=== PATIENT | male | born 1975 | race Caucasian/White ===

== ENCOUNTER → 2018-08-10 | Outpatient (CLI) | payer OTHER ==
[2018-08-10 17:27] LABS: Urine Alcohol Negative (Negative); Urine Barbiturate Negative (Negative); Urine Cocaine Negative (Negative); Urine Methadone Negative (Negative); Urine Opiates Positive (Negative); Urine Phencyclidine Negative (Negative)
== END ==
LOC: LABWHC1 11:23 → EDSTATUS 11:32
PROVIDERS: ATTEND Internal Medicine
DX: Z51.81 Encounter for therapeutic drug level monitoring (principal); Z79.891 Long term (current) use of opiate analgesic
CPT/HCPCS: 80306

== ENCOUNTER 2019-04-16 15:19 | Emergency (ER) | payer OTHER ==
[2019-04-16 15:24] VITALS: RESP 18
[2019-04-16] MEDS ORDERED: AMOXIC-POT CLAV 875MG STARTER 2 EACH TABLET PO STA (16:11)
--- NOTE | 2019-04-16 16:11 | ED ---
General Adult HPI - General Chief complaint: Animal Bite Stated complaint: [facility] dog bite Time Seen by Provider: 04/16/19 15:36 Source: patient, RN notes reviewed, old records reviewed Mode of arrival: ambulatory Limitations: no limitations - History of Present Illness Initial comments: 43-year-old male patient fully vaccinated, last tetanus 3 years ago presents ED for evaluation of possible dog bite to his scrotum. 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 Patient reports that he is wearing very thick Cement as well as underwear and did not penetrate through the pants. Patient reports that he believes he does have a small abrasion in his left scrotal region and wanted to be evaluated. Patient reports that he vigorously cleaned this with soap and water as well as hydrogen peroxide after the bite. Patient denies any other complaints. Systemic: Pt denies fatigue, fever/chills, rash. Pt denies weakness, night sweats, weight loss. Neuro: Pt denies headache, visual disturbances, syncope or pre-syncope. HEENT: Pt denies ocular discharge or irritation, otalgia, rhinorrhea, pharyngitis or notable lymphadenopathy. Cardiopulmonary: Pt denies chest pain, SOB, heart palpitations, dyspnea on exertion. Abdominal/GI: Pt denies abdominal pain, n/v/d. : Pt denies dysuria, burning w/ urination, frequency/urgency. Denies new onset urinary or bowel incontinence. MSK: Pt denies myalgia, loss of strength or function in extremities. Neuro: Pt denies new onset weakness, paresthesias. - Related Data Home Medications Medication Instructions Recorded Confirmed Zolpidem [Ambien] 10 mg PO HS PRN 04/21/16 04/21/16 fentaNYL 50MCG/HR PATCH [Duragesic 1 patch TRANSDERM Q72H 04/21/16 04/21/16 50Mcg/Hr Patch] Previous Rx's Medication Instructions Recorded Orphenadrine [Norflex] 100 mg PO Q12H #10 tablet.er 04/21/16 Amoxicillin/Potassium Clav 1 each PO Q12HR #20 tab 04/16/19 [Augmentin 875-125 Tablet] Allergies Allergy/AdvReac Type Severity Reaction Status Date / Time quetiapine fumarate Allergy Unknown Verified 04/16/19 15:24 [From Seroquel] Review of Systems ROS Statement: Those systems with pertinent positive or pertinent negative responses have been documented in the HPI. ROS Other: All systems not noted in ROS Statement are negative. Past Medical History Past Medical History: Hypertension Additional Past Medical History / Comment(s): sciatic nerve problems, insomnia History of Any Multi-Drug Resistant Organisms: None Reported Past Surgical History: No Surgical Hx Reported Past Psychological History: No Psychological Hx Reported Smoking Status: Never smoker Past Alcohol Use History: None Reported Past Drug Use History: None Reported General Exam - General Exam Comments Initial Comments: Constitutional: NAD, AOX3, Pt has pleasant affect. HEENT: NC/AT, trachea midline, neck supple, no lymphadenopathy. Posterior pharynx non erythematous, without exudates. External ears appear normal, without discharge. Mucous membranes moist. Eyes PERRLA, EOM intact. There is no scleral icterus. No pallor noted. Cardiopulmonary: RRR, no murmurs, rubs or gallops, no JVD noted. Lungs CTAB in anterior and posterior noel. No peripheral edema. Abdominal exam: Abdomen soft and non-distended. Abdomen non-tender to palpation in all 4 quadrants. Bowel sounds active in LLQ. No hepatosplenomegaly. No ecchymosis Neuro: CN II-XII grossly intact. No nuchal rigidity. No raccon eyes, no kay sign, no hemotympanum. No cervical spinal tenderness. MSK: No posterior calf tenderness bilaterally, homans sign negative bilaterally. Posterior tibialis and radial pulse +2 bilaterally. Sensation intact in upper and lower extremities. Full active ROM in upper and lower extremities, 5/5 stregnth. : Small abrasion less than 1 cm noted in left scrotal region. No penetrating trauma. No bleeding. No other injuries noted. No testicular tenderness, no blue dot sign, no masses felt. Limitations: no limitations Course Vital Signs 04/16/19 15:21 Temperature 99.0 F Pulse Rate 85 Respiratory 18 Rate Blood Pressure 153/101 O2 Sat by Pulse 98 Oximetry Medical Decision Making - Medical Decision Making 43-year-old male patient fully vaccinated, last tetanus 3 years ago presents ED for evaluation of possible dog bite to his scrotum. 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 Patient reports that he is wearing very thick [place] as well as underwear and did not penetrate through the pants. Patient reports that he believes he does have a small abrasion in his left scrotal region and wanted to be evaluated. Patient reports that he vigorously cleaned this with soap and water as well as hydrogen peroxide after the bite. Patient denies any other complaints. Pt VSS, afebrile. Physical exam displayed: Small abrasion less than 1 cm noted in left scrotal region. No penetrating trauma. No bleeding. No other injuries noted. No testicular tenderness, no blue dot sign, no masses felt. Cleaned in ED. Pt will be started on augmentin, will be discharged with close return precautions. Case discussed with Dr. Chavez. Disposition Clinical Impression: Dog bite, Abrasion Disposition: HOME SELF-CARE Instructions (If sedation given, give patient instructions): Animal Bite (ED) Additional Instructions: Patient to adhere to previously discussed treatment plan and will take medication(s) as directed. Patient to follow up with PCP in 1-2 days. Patient to return to ED if symptoms do not improve. Take medications as directed. Follow up with primary care provider tomorrow. Return to ER if condition worsens. Prescriptions: Amoxicillin/Potassium Clav [Augmentin 875-125 Tablet] 1 each PO Q12HR #20 tab Is patient prescribed a controlled substance at d/c from ED?: No Referrals: Angelo Santos MD [Primary Care Provider] - 1-2 days
[2019-04-16 16:43] VITALS: BP 146/85; PULSE 71; TEMP 98.8
== END 2019-04-16 16:37 | disposition home or self-care (01) ==
LOC: EC 15:19
DX: S30.813A Abrasion of scrotum and testes, initial encounter (principal); S31.35XA Open bite of scrotum and testes, initial encounter; Z88.8 Allergy status to other drugs, medicaments and biological substances; W54.0XXA Bitten by dog, initial encounter; Y93.89 Activity, other specified; Y92.69 Other specified industrial and construction area as the place of occurrence of the external cause; Y99.0 Civilian activity done for income or pay
CPT/HCPCS: 99283

== ENCOUNTER 2019-04-18 11:29 | Emergency (ER) | payer OTHER ==
[2019-04-18 11:36] VITALS: TEMP 98.4
--- NOTE | 2019-04-18 11:58 | ED ---
General Adult HPI - General Chief complaint: Animal Bite Stated complaint: [facility] - recheck dog bite Time Seen by Provider: 04/18/19 11:39 Source: patient, RN notes reviewed, old records reviewed Mode of arrival: ambulatory Limitations: no limitations - History of Present Illness Initial comments: 43-year-old male patient presents in ED for chief complaint of wound recheck. Patient reports that on 04/16 he was bitten by a dog through his pants in his left scrotal region. The teeth did not penetrate through the pants, patient had a small abrasion in his left scrotal region. Patient is discharged with antibiotics. Patient reports that since discharge she has had pain in his left testicle which radiates upward. Patient has been taking in excess prescribed. Patient denies any fevers chills, symptoms of infection. Patient denies any other complaints this time. Systemic: Pt denies fatigue, fever/chills, rash. Pt denies weakness, night sweats, weight loss. Neuro: Pt denies headache, visual disturbances, syncope or pre-syncope. HEENT: Pt denies ocular discharge or irritation, otalgia, rhinorrhea, pharyngitis or notable lymphadenopathy. Cardiopulmonary: Pt denies chest pain, SOB, heart palpitations, dyspnea on exertion. Abdominal/GI: Pt denies abdominal pain, n/v/d. : Pt denies dysuria, burning w/ urination, frequency/urgency. Denies new onset urinary or bowel incontinence. MSK: Pt denies myalgia, loss of strength or function in extremities. Neuro: Pt denies new onset weakness, paresthesias. - Related Data Home Medications Medication Instructions Recorded Confirmed Zolpidem [Ambien] 10 mg PO HS PRN 04/21/16 04/21/16 fentaNYL 50MCG/HR PATCH [Duragesic 1 patch TRANSDERM Q72H 04/21/16 04/21/16 50Mcg/Hr Patch] Previous Rx's Medication Instructions Recorded Orphenadrine [Norflex] 100 mg PO Q12H #10 tablet.er 04/21/16 Amoxicillin/Potassium Clav 1 each PO Q12HR #20 tab 04/16/19 [Augmentin 875-125 Tablet] Cephalexin [Keflex] 500 mg PO Q6HR 7 Days #28 cap 04/18/19 Allergies Allergy/AdvReac Type Severity Reaction Status Date / Time quetiapine fumarate Allergy Unknown Verified 04/18/19 11:33 [From Seroquel] Review of Systems ROS Statement: Those systems with pertinent positive or pertinent negative responses have been documented in the HPI. ROS Other: All systems not noted in ROS Statement are negative. Past Medical History Past Medical History: Hypertension Additional Past Medical History / Comment(s): sciatic nerve problems, insomnia History of Any Multi-Drug Resistant Organisms: None Reported Past Surgical History: No Surgical Hx Reported Past Psychological History: No Psychological Hx Reported Smoking Status: Never smoker Past Alcohol Use History: None Reported Past Drug Use History: None Reported General Exam - General Exam Comments Initial Comments: Constitutional: NAD, AOX3, Pt has pleasant affect. HEENT: NC/AT, trachea midline, neck supple, no lymphadenopathy. Posterior pharynx non erythematous, without exudates. External ears appear normal, without discharge. Mucous membranes moist. Eyes PERRLA, EOM intact. There is no scleral icterus. No pallor noted. Cardiopulmonary: RRR, no murmurs, rubs or gallops, no JVD noted. Lungs CTAB in anterior and posterior noel. No peripheral edema. Abdominal exam: Abdomen soft and non-distended. Abdomen non-tender to palpation in all 4 quadrants. Bowel sounds active in LLQ. No hepatosplenomegaly. No ecchymosis Neuro: CN II-XII grossly intact. No nuchal rigidity. No raccon eyes, no kay sign, no hemotympanum. No cervical spinal tenderness. MSK: No posterior calf tenderness bilaterally, homans sign negative bilaterally. Posterior tibialis and radial pulse +2 bilaterally. Sensation intact in upper and lower extremities. Full active ROM in upper and lower extremities, 5/5 stregnth. : Abrasion noted and left scrotal region, no cellulitis, no streaking. Left testicle mild tenderness to palpation. No blue dot sign, creamesteric reflex intact Limitations: no limitations Course Vital Signs 04/18/19 04/18/19 11:31 14:14 Temperature 98.4 F Pulse Rate 69 64 Respiratory 16 18 Rate Blood Pressure 162/101 134/94 O2 Sat by Pulse 99 97 Oximetry Medical Decision Making - Medical Decision Making 43-year-old male patient presents in ED for chief complaint of wound recheck. Patient reports that on 04/16 he was bitten by a dog through his pants in his left scrotal region. The teeth did not penetrate through the pants, patient had a small abrasion in his left scrotal region. Patient is discharged with antibiotics. Patient reports that since discharge she has had pain in his left testicle which radiates upward. Patient has been taking in excess prescribed. Patient denies any fevers chills, symptoms of infection. Patient denies any other complaints this time. Patient will signs stable, afebrile. Physical exam displayed: Abrasion noted and left scrotal region, no cellulitis, no streaking. Left testicle mild tenderness to palpation. No blue dot sign, creamesteric reflex intact. Ultrasound displayed no sonographic evidence of torsion, small extratesticular 2.4 cm fluid collection which may represent small seroma or a small left hydrocele. UA displayed mild dry tract infection. Patient again stated that he does not believe that he has any STDs. Denies any dysuria or d ischarge. Patient reportedly been sexually active with his one time the last 2 years. Approximate 4 months ago. Patient acute Keflex for her urinary tract infection will be discharged with close outpatient neurologic follow-up will continue to take Augmentin will return to ER if condition worsens in any way. Case discussed with Dr. Lou. - Lab Data Result diagrams: 04/18/19 13:00 04/18/19 13:00 Lab Results 04/18/19 04/18/19 04/18/19 Range/Units 13:00 13:00 13:00 WBC 6.8 (3.8-10.6) k/uL RBC 4.70 (4.30-5.90) m/uL Hgb 14.5 (13.0-17.5) gm/dL Hct 42.2 (39.0-53.0) % MCV 89.8 (80.0-100.0) fL MCH 30.9 (25.0-35.0) pg MCHC 34.4 (31.0-37.0) g/dL RDW 12.6 (11.5-15.5) % Plt Count 207 (150-450) k/uL Neutrophils % 64 % Lymphocytes % 23 % Monocytes % 6 % Eosinophils % 4 % Basophils % 2 % Neutrophils # 4.3 (1.3-7.7) k/uL Lymphocytes # 1.6 (1.0-4.8) k/uL Monocytes # 0.4 (0-1.0) k/uL Eosinophils # 0.2 (0-0.7) k/uL Basophils # 0.1 (0-0.2) k/uL Sodium 141 (137-145) mmol/L Potassium 5.0 (3.5-5.1) mmol/L Chloride 105 (98-107) mmol/L Carbon Dioxide 25 (22-30) mmol/L Anion Gap 11 mmol/L BUN 12 (9-20) mg/dL Creatinine 0.87 (0.66-1.25) mg/dL Est GFR (CKD-EPI)AfAm >90 (>60 ml/min/1.73 sqM) Est GFR (CKD-EPI)NonAf >90 (>60 ml/min/1.73 sqM) Glucose 129 H (74-99) mg/dL Plasma Lactic Acid Bala 1.2 (0.7-2.0) mmol/L Calcium 9.5 (8.4-10.2) mg/dL Total Bilirubin 0.4 (0.2-1.3) mg/dL AST 81 H (17-59) U/L ALT 136 H (21-72) U/L Alkaline Phosphatase 67 (38-126) U/L Total Protein 8.1 (6.3-8.2) g/dL Albumin 4.8 (3.5-5.0) g/dL Urine Color Urine Appearance (Clear) Urine pH (5.0-8.0) Ur Specific [place] (1.001-1.035) Urine Protein (Negative) Urine Glucose (UA) (Negative) Urine Ketones (Negative) Urine Blood (Negative) Urine Nitrite (Negative) Urine Bilirubin (Negative) Urine Urobilinogen (<2.0) mg/dL Ur Leukocyte Esterase (Negative) Urine RBC (0-5) /hpf Urine WBC (0-5) /hpf Urine Mucus (None) /hpf Urine Sperm (None) /hpf 04/18/19 Range/Units 13:52 WBC (3.8-10.6) k/uL RBC (4.30-5.90) m/uL Hgb (13.0-17.5) gm/dL Hct (39.0-53.0) % MCV (80.0-100.0) fL MCH (25.0-35.0) pg MCHC (31.0-37.0) g/dL RDW (11.5-15.5) % Plt Count (150-450) k/uL Neutrophils % % Lymphocytes % % Monocytes % % Eosinophils % % Basophils % % Neutrophils # (1.3-7.7) k/uL Lymphocytes # (1.0-4.8) k/uL Monocytes # (0-1.0) k/uL Eosinophils # (0-0.7) k/uL Basophils # (0-0.2) k/uL Sodium (137-145) mmol/L Potassium (3.5-5.1) mmol/L Chloride (98-107) mmol/L Carbon Dioxide (22-30) mmol/L Anion Gap mmol/L BUN (9-20) mg/dL Creatinine (0.66-1.25) mg/dL Est GFR (CKD-EPI)AfAm (>60 ml/min/1.73 sqM) Est GFR (CKD-EPI)NonAf (>60 ml/min/1.73 sqM) Glucose (74-99) mg/dL Plasma Lactic Acid Bala (0.7-2.0) mmol/L Calcium (8.4-10.2) mg/dL Total Bilirubin (0.2-1.3) mg/dL AST (17-59) U/L ALT (21-72) U/L Alkaline Phosphatase (38-126) U/L Total Protein (6.3-8.2) g/dL Albumin (3.5-5.0) g/dL Urine Color Yellow Urine Appearance Clear (Clear) Urine pH 5.5 (5.0-8.0) Ur Specific [place] 1.014 (1.001-1.035) Urine Protein Negative (Negative) Urine Glucose (UA) Negative (Negative) Urine Ketones Negative (Negative) Urine Blood Negative (Negative) Urine Nitrite Negative (Negative) Urine Bilirubin Negative (Negative) Urine Urobilinogen <2.0 (<2.0) mg/dL Ur Leukocyte Esterase Small H (Negative) Urine RBC 3 (0-5) /hpf Urine WBC 11 H (0-5) /hpf Urine Mucus Rare H (None) /hpf Urine Sperm Rare (None) /hpf Disposition Clinical Impression: Seroma, UTI (urinary tract infection) Disposition: HOME SELF-CARE Condition: Stable Instructions (If sedation given, give patient instructions): Urinary Tract Infection in Men (ED), Seroma (DC) Additional Instructions: Patient to adhere to previously discussed treatment plan and will take medication(s) as directed. Patient to follow up with PCP in 1-2 days. Patient to return to ED if symptoms do not improve. Follow-up urologist tomorrow, take medication as directed. Return to ER if condition worsens. Prescriptions: Cephalexin [Keflex] 500 mg PO Q6HR 7 Days #28 cap Is patient prescribed a controlled substance at d/c from ED?: No Referrals: Angelo Santos MD [Primary Care Provider] - 1-2 days Kraig Mclain MD [STAFF PHYSICIAN] - 1-2 days
--- NOTE | 2019-04-18 13:15 | US ---
EXAMINATION TYPE: US scrotum with doppler. Grayscale and color Doppler Duplex imaging performed of t sami scrotum. DATE OF EXAM: 04/18/2019 COMPARISON: NONE CLINICAL HISTORY: pain, s/p animal bite. Left testicular pain following dog bite 2 days ago EXAM MEASUREMENTS: TESTICLES: Right Testicle: 4.6 x 3.4 x 3.6 cm Left Testicle: 5.2 x 2.5 x 3.5 cm EPIDIDYMIS HEAD: Right Epididymis: 1.8 x 0.9 x 1.4 cm Left Epididymis: 0.9 x 1.1 x 1.7 cm Doppler performed to assess for testicular vascularity; good bilateral color flow and waveforms are s een. There is no evidence of testicular torsion. Presence of hydroceles: left 2.4cm fluid collection, possible hydrocele or seroma. Presence of varicoceles: no IMPRESSION: No sonographic evidence of testicular torsion at the time of the examination. There is a a small extratesticular 2.4 cm left fluid collection in the subcutaneous tissues that may represent a small seroma or loculated component of a small left hydrocele.
[2019-04-18 13:21] LABS: Basophils # (A) 0.1 k/uL (0-0.2); Basophils % (A) 2 %; Eosinophils # (A) 0.2 k/uL (0-0.7); Eosinophils % (A) 4 %; HCT 42.2 % (39.0-53.0); HGB 14.5 gm/dL (13.0-17.5); Lymphocytes # (A) 1.6 k/uL (1.0-4.8); Lymphocytes % (A) 23 %; MCH 30.9 pg (25.0-35.0); MCHC 34.4 g/dL (31.0-37.0); MCV 89.8 fL (80.0-100.0); Mean Platelet Volume 6.7; Monocytes # (A) 0.4 k/uL (0-1.0); Monocytes % (A) 6 %; Neutrophils # (A) 4.3 k/uL (1.3-7.7); Neutrophils % (A) 64 %; Platelet Count 207 k/uL (150-450); RDW 12.6 % (11.5-15.5); WBC 6.8 k/uL (3.8-10.6)
[2019-04-18 13:30] LABS: ALT 136 U/L (21-72); AST 81 U/L (17-59); African American GFR (CKD) >90 (>60 ml/min/1.73 sqM); Albumin 4.8 g/dL (3.5-5.0); Alkaline Phosphatase 67 U/L (38-126); Anion Gap 11 mmol/L; Blood Urea Nitrogen 12 mg/dL (9-20); Calcium 9.5 mg/dL (8.4-10.2); Carbon Dioxide 25 mmol/L (22-30); Chloride 105 mmol/L (98-107); Glucose 129 mg/dL (74-99); Sodium 141 mmol/L (137-145); Total Bilirubin 0.4 mg/dL (0.2-1.3); Total Protein 8.1 g/dL (6.3-8.2)
[2019-04-18 14:15] VITALS: RESP 18
[2019-04-18 14:46] LABS: Appearance,Urine Clear (Clear); Bilirubin,Urine Negative (Negative); Blood,Urine Negative (Negative); Color,Urine Yellow; Glucose,Urine (UA) Negative (Negative); Ketones,Urine Negative (Negative); Leukocyte Esterase,Urine Small (Negative); Mucus,Urine Rare /hpf; Nitrite,Urine Negative (Negative); PH, Urine 5.5 (5.0-8.0); Protein,Urine Negative (Negative); RBC,Urine 3 /hpf (0-5); Specific Gravity,Urine 1.014 (1.001-1.035); Sperm,Urine Rare /hpf; Urobilinogen,Urine <2.0 mg/dL (<2.0); WBC,Urine 11 /hpf (0-5)
[2019-04-18] MEDS ORDERED: CEPHALEXIN 500MG STARTER PACK 4 CAP BTL PO STA (14:59)
[2019-04-18] MEDS ORDERED: CEPHALEXIN 500 MG CAP PO STA (14:59)
[2019-04-18 16:22] VITALS: BP 138/90; PULSE 67
== END 2019-04-18 16:21 | disposition home or self-care (01) ==
LOC: EC 11:29
DX: N39.0 Urinary tract infection, site not specified (principal); N50.1 Vascular disorders of male genital organs; S30.813A Abrasion of scrotum and testes, initial encounter; S31.35XA Open bite of scrotum and testes, initial encounter; G47.00 Insomnia, unspecified; M54.30 Sciatica, unspecified side; Z79.899 Other long term (current) drug therapy; Z88.8 Allergy status to other drugs, medicaments and biological substances; W54.0XXA Bitten by dog, initial encounter
CPT/HCPCS: 36415; 76870; 80053; 81001; 83605; 85025; 93975; 99284

== ENCOUNTER 2020-03-12 08:59 | Emergency (ER) | payer OTHER ==
[2020-03-12] MEDS ORDERED: HYDROcodone/APAP 7.5-325MG 1 EACH TAB PO ONE (09:16)
[2020-03-12] MEDS ORDERED: IBUPROFEN 600 MG TAB PO STA (09:17)
--- NOTE | 2020-03-12 09:23 | ED ---
General Adult HPI - General Chief complaint: Wound/Laceration Stated complaint: lt leg pain, head lac Time Seen by Provider: 03/12/20 09:06 Source: patient, RN notes reviewed Mode of arrival: wheelchair Limitations: no limitations - History of Present Illness Initial comments: This a 44-year-old male presents emergency Department with chief complaint of left leg pain, back pain, fall. Patient states that he has ongoing sciatic problems. Patient states that he injured his back last couple days states that sore but states that he tried to go up his first step yesterday and had instant pain. Patient states pain is better at rest worse with movement he states he can get comfortable when his live. He denies any bowel, bladder incontinence or retention of abdominal pain no leg paresthesias or saddle anesthesia. Patient states that states his leg feels swollen no discoloration. Patient states that he cannot to walk this morning states that the pain was so bad that he fell striking his head on a weight. Patient states his tetanus is up-to-date denies any loss conscious. - Related Data Home Medications Medication Instructions Recorded Confirmed Carisoprodol [Soma] 350 mg PO QID PRN 03/12/20 03/12/20 HYDROcodone/APAP 10-325MG [[place] 1 - 2 tab PO Q6H PRN 03/12/20 03/12/20 10-325] Loratadine [Claritin] 10 mg PO DAILY PRN 03/12/20 03/12/20 lisinopriL 40 mg PO HS 03/12/20 03/12/20 Previous Rx's Medication Instructions Recorded Ibuprofen [Motrin] 600 mg PO Q8HR PRN #30 tab 03/12/20 predniSONE 50 mg PO DAILY #5 tab 03/12/20 Allergies Allergy/AdvReac Type Severity Reaction Status Date / Time quetiapine fumarate Allergy couldn't Verified 03/12/20 10:13 [From Seroquel] move Review of Systems ROS Statement: Those systems with pertinent positive or pertinent negative responses have been documented in the HPI. ROS Other: All systems not noted in ROS Statement are negative. Past Medical History Past Medical History: Hypertension Additional Past Medical History / Comment(s): sciatic nerve problems, insomnia History of Any Multi-Drug Resistant Organisms: None Reported Past Surgical History: No Surgical Hx Reported Past Psychological History: No Psychological Hx Reported Smoking Status: Never smoker Past Alcohol Use History: None Reported Past Drug Use History: None Reported General Exam Limitations: no limitations General appearance: alert, in no apparent distress Head exam: Present: atraumatic, normocephalic. Absent: normal inspection (3 cm scalp laceration on the left parietal) Eye exam: Present: normal appearance, PERRL, EOMI. Absent: scleral icterus, conjunctival injection, periorbital swelling ENT exam: Present: normal exam, normal oropharynx, mucous membranes moist Neck exam: Present: normal inspection, full ROM. Absent: tenderness, mening ismus, lymphadenopathy Respiratory exam: Present: normal lung sounds bilaterally. Absent: respiratory distress, wheezes, rales, rhonchi, stridor Cardiovascular Exam: Present: regular rate, normal rhythm, normal heart sounds. Absent: systolic murmur, diastolic murmur, rubs, gallop, clicks GI/Abdominal exam: Present: soft, normal bowel sounds. Absent: distended, tenderness, guarding, rebound, rigid Extremities exam: Present: other (Moderate swelling to the left leg, pedal pulses equal bilaterally equal color equal warmth patient's full range of motion full-strength lower extremities) Back exam: Present: tenderness, muscle spasm, paraspinal tenderness. Absent: full ROM (Patient reports pain causing decreased range of motion of his lumbar minimal), CVA tenderness (R), CVA tenderness (L), vertebral tenderness Neurological exam: Present: alert, oriented X3, CN II-XII intact, reflexes normal. Absent: motor sensory deficit Skin exam: Present: warm, dry, intact, normal color. Absent: rash Course Vital Signs 03/12/20 09:02 Temperature 98.4 F Pulse Rate 93 Respiratory 17 Rate Blood Pressure 160/83 O2 Sat by Pulse 100 Oximetry - Reevaluation(s) Reevaluation #1: 03/12/20 10:03 Patient refusing to lay down for x-ray or CT secondary to pain Medical Decision Making - Medical Decision Making 44-year-old male present emergency department for back pain, scalp laceration. Patient is awake alert and orientated no sinus distress. Patient recommended to have CT head neck and x-rays of the back. Patient developed some leg which is negative. Patient refuses to stay longer for imaging, states that he cannot lay down because of the pain in his back states that it spasms. Patient offered IV with IV pain meds and further workup states that he prefers to let things calmed down and go home at this time. Prefers to try a course steroids, pain meds. He understands the risk of leaving AGAINST MEDICAL ADVICE. Patient states that he'll follow-up with orthopedics and return for any worsening symptoms. Patient refuses jarrod of this laceration patient has no red flag symptoms of his back pain. Disposition Clinical Impression: Scalp laceration, Lumbar radiculopathy Disposition: Left Against Medical Advice Condition: Stable Instructions (If sedation given, give patient instructions): Laceration (ED), Lumbar Radiculopathy (ED) Additional Instructions: Please return to the Emergency Department if symptoms worsen or any other concerns. Prescriptions: Ibuprofen [Motrin] 600 mg PO Q8HR PRN #30 tab PRN Reason: Pain predniSONE 50 mg PO DAILY #5 tab Is patient prescribed a controlled substance at d/c from ED?: No Referrals: Angelo Santos MD [Primary Care Provider] - 1-2 days Pablo Good DO [Doctor of Osteopathic Medicine] - 1-2 days Time of Disposition: 11:40
[2020-03-12] MEDS ORDERED: DIAZEPAM 5 MG/ML 2 ML INJ IM ONE (10:02)
--- NOTE | 2020-03-12 10:30 | US ---
EXAMINATION TYPE: US venous doppler duplex LE LT DATE OF EXAM: 03/12/2020 10:24 AM COMPARISON: NONE CLINICAL HISTORY: pain. Pain and edema SIDE PERFORMED: Left TECHNIQUE: The lower extremity deep venous system is examined utilizing real time linear array sonog fiona with graded compression, doppler sonography and color-flow sonography. VESSELS IMAGED: External Iliac Vein (EIV) Common Femoral Vein Deep Femoral Vein Greater Saphenous Vein * Femoral Vein Popliteal Vein Small Saphenous Vein * Proximal Calf Veins (* superficial vessels) Left Leg: Negative for DVT Grayscale, color doppler, spectral doppler imaging performed of the deep veins of the left lower extr emity. There is normal flow, compressibility, vascular waveforms. IMPRESSION: No ultrasound evidence for acute DVT in the left lower extremity.
[2020-03-12] MEDS ORDERED: HYDROmorphone 1 MG/ML 1 ML SYRINGE IM STA (11:39)
[2020-03-12 12:15] VITALS: BP 138/78; PULSE 78; RESP 16; TEMP 97.8
== END 2020-03-12 12:13 | disposition left against medical advice (07) ==
LOC: EC 08:59
DX: S01.01XA Laceration without foreign body of scalp, initial encounter (principal); M54.16 Radiculopathy, lumbar region; I10 Essential (primary) hypertension; Z79.899 Other long term (current) drug therapy; Z88.8 Allergy status to other drugs, medicaments and biological substances; Z53.29 Procedure and treatment not carried out because of patient's decision for other reasons; W18.00XA Striking against unspecified object with subsequent fall, initial encounter
CPT/HCPCS: 93971; 99283; 96372 ×2; J3360; J1170

== ENCOUNTER 2020-03-14 20:01 | Emergency (ER) | payer OTHER ==
[2020-03-14 20:11] VITALS: TEMP 98.7
--- NOTE | 2020-03-14 20:52 | XR ---
EXAMINATION TYPE: XR lumbar spine 2 or 3V DATE OF EXAM: 03/14/2020 COMPARISON: NONE HISTORY: Back pain TECHNIQUE: 3 views FINDINGS: There is slight lumbar levoscoliosis. There is a few millimeter anterior subluxation of L4 in relation L5. There is no spondylolysis. There is disc space narrowing in the lumbar spine more not iceable at L3-4 and L4-5. There is no compression fracture. Sacroiliac joints appear intact. IMPRESSION: Mild spondylotic changes and minimal levoscoliosis. No fracture. Mild anterior L4 subluxa tion deformity.
--- NOTE | 2020-03-14 21:43 | ED ---
General Adult HPI - General Chief complaint: Wound/Laceration Stated complaint: Fall,Head Injury Time Seen by Provider: 03/14/20 20:13 Source: patient Mode of arrival: wheelchair Limitations: no limitations - History of Present Illness Initial comments: Patient is a 44-year-old male presenting to the emergency Department for a recheck of a laceration on his head as well as continued low back pain. Patient was here 2 days ago for same complaint. He has a history of left-sided sciatica that flares up for the past few years. He has not seen a specialist for this. Patient states he was in too much pain the last visit to do any kind of imaging. They also recommended doing jarrod to his head wound however patient declined a that time. Patient states the wound has not been bleeding but is concerned he should have received jarrod. He denies any bowel or bladder incontinence. He denies any saddle paresthesia. He denies any numbness and tingling down his lower extremities. He states the pain in his low back does travel to his left gluteal area and he has some pain in his left upper leg. The pain worsens when he stands up straight. He sometimes has increased pain with weightbearing on the left side but not always. He denies any recent falls or trauma. He denies any recent fever or chills. He has no further complaints. - Related Data Home Medications Medication Instructions Recorded Confirmed Carisoprodol [Soma] 350 mg PO QID PRN 03/12/20 03/12/20 HYDROcodone/APAP 10-325MG [Noble 1 - 2 tab PO Q6H PRN 03/12/20 03/12/20 10-325] Loratadine [Claritin] 10 mg PO DAILY PRN 03/12/20 03/12/20 lisinopriL 40 mg PO HS 03/12/20 03/12/20 Previous Rx's Medication Instructions Recorded Ibuprofen [Motrin] 600 mg PO Q8HR PRN #30 tab 03/12/20 Ibuprofen [Motrin] 600 mg PO Q8HR PRN #30 tab 03/12/20 predniSONE 50 mg PO DAILY #5 tab 03/12/20 predniSONE 50 mg PO DAILY #5 tab 03/12/20 Allergies Allergy/AdvReac Type Severity Reaction Status Date / Time quetiapine fumarate Allergy couldn't Verified 03/14/20 20:08 [From Seroquel] move Review of Systems ROS Statement: Those systems with pertinent positive or pertinent negative responses have been documented in the HPI. ROS Other: All systems not noted in ROS Statement are negative. Past Medical History Past Medical History: Hypertension Additional Past Medical History / Comment(s): sciatic nerve problems, insomnia History of Any Multi-Drug Resistant Organisms: None Reported Past Surgical History: No Surgical Hx Reported Past Psychological History: No Psychological Hx Reported Smoking Status: Never smoker Past Alcohol Use History: None Reported Past Drug Use History: None Reported General Exam - General Exam Comments Initial Comments: GENERAL: Patient is well-developed and well-nourished. Patient is nontoxic and in no acute distress. HEAD: Atraumatic, normocephalic. Healing laceration on his superior scalp area. EYES: Pupils equal round and reactive to light, extraocular movements intact, sclera anicteric, conjunctiva are normal. Eyelids were unremarkable. ENT: TMs normal, nares patent, oropharynx clear without exudates. Moist mucous membranes. NECK: Normal range of motion, supple without lymphadenopathy or JVD. LUNGS: Unlabored respirations. Breath sounds clear to auscultation bilaterally and equal. No wheezes rales or rhonchi. HEART: Regular rate and rhythm without murmurs, rubs or gallops. ABDOMEN: Soft, nontender, normoactive bowel sounds. No guarding, no rebound. No masses appreciated. : Deferred MUSCULOSKELETAL: Normal extremities with adequate strength and normal range of motion, no pitting or edema. No clubbing or cyanosis. No pain to palpation of the midline lumbar spine, lumbar paraspinals. He has some mild pain to palpation of his left sciatic nerve area. He has adequate glut contraction. NEUROLOGICAL: Normal speech, normal gait. PSYCH: Normal mood, normal affect. SKIN: Warm, Dry, normal turgor, no rashes or lesions noted. Limitations: no limitations Course Vital Signs 03/14/20 03/14/20 20:04 21:59 Temperature 98.7 F Pulse Rate 93 80 Respiratory 16 18 Rate Blood Pressure 152/65 136/78 O2 Sat by Pulse 95 100 Oximetry Medical Decision Making - Medical Decision Making Patient is a 44-year-old male here for recheck of his scalp laceration as well as left-sided sciatic pain. She was seen in the ER 2 days ago for same complaint. At that time he left AMA secondary to not being able to lay still for imaging. He also refused jarrod of his head laceration. Patient states he did call Dr. Good for referral but has not heard back from him yet. He also states he feels like steroids and ibuprofen is helping with his pain. He has no red flag symptoms today. He is able to ambulate. X-rays of the lumbar spine shows mild spondylitic changes, no fractures. Mild, few millimeter, anterior L4 subluxation deformity. Patient's head laceration is healing great, no active bleeding, no signs of infection. I discussed with patient that he does not need jarrod at this time. Patient should continue with already prescribed steroids and ibuprofen, follow-up with Dr. Good as discussed. He is stable for discharge. He is agreeable with this plan of care. Disposition Clinical Impression: Lumbar radiculopathy, Scalp laceration Disposition: HOME SELF-CARE Condition: Stable Instructions (If sedation given, give patient instructions): Sciatica (ED) Additional Instructions: Please return to the Emergency Department if symptoms worsen or any other concerns. Continue with already prescribed prednisone and ibuprofen as needed for discomfort. Keep his scalp wound clean and dry. Follow-up with Dr. Good as discussed on previous visit. Is patient prescribed a controlled substance at d/c from ED?: No Referrals: None,Stated [Primary Care Provider] - 1-2 days
[2020-03-14 22:00] VITALS: BP 136/78; PULSE 80; RESP 18
== END 2020-03-14 22:00 | disposition home or self-care (01) ==
LOC: EC 20:01
DX: S01.91XD Laceration without foreign body of unspecified part of head, subsequent encounter (principal); M54.16 Radiculopathy, lumbar region; I10 Essential (primary) hypertension; Z79.899 Other long term (current) drug therapy; Z88.8 Allergy status to other drugs, medicaments and biological substances; W19.XXXD Unspecified fall, subsequent encounter
CPT/HCPCS: 72100; 99283